=== PATIENT | male | born 1985 ===

== ENCOUNTER → 2021-04-18 | Outpatient (CLI) | payer MEDICARE, MEDICAID ==
[~2021-04-18] MED LIST: CATHETER FLUSH 10 ML SYR IV PRN; HOLD METFORMIN - RECEIVED CONTRAST 20 ML VIAL IV SCH; IOHEXOL 350 MG/ML 100 ML (OMNIPAQUE 350) VIAL IV ONE; NS 100 ML (IVPB) BAG IV ONE
--- NOTE | 2021-04-18 12:17 | Diagnostic Imaging Report ---
PROCEDURE: CT head with and without contrast. TECHNIQUE: Multiple contiguous axial images were obtained through the brain before and after the administration of intravenous contrast. Auto Exposure Controls were utilized during the CT exam to meet ALARA standards for radiation dose reduction. INDICATION: Visual changes and fatigue. No prior CT scans are available for comparison. There are postsurgical changes with a left frontal yaakov hole. There appears to have been a right temporal craniotomy. There are bilateral occipital craniotomies. A right posterior parietal ADJUSTER shunt tube has its tip near the midline between the frontal horns of the lateral ventricles. The ventricles appear to be decompressed. No hydrocephalus is identified. There is no midline shift. No acute intra-axial or extra-axial hemorrhage is detected. Postcontrast images are without abnormal enhancing lesion. IMPRESSION: Chronic and postsurgical changes. There is a ADJUSTER shunt tube in place. No hydrocephalus is identified. No acute features identified. Dictated by: Dictated on workstation # [id number]
== END ==
LOC: RAD 11:06
PROVIDERS: ATTEND Nurse Practitioner Family
DX: H53.9 Unspecified visual disturbance (principal); Q05.4 Unspecified spina bifida with hydrocephalus; R53.83 Other fatigue; Z98.890 Other specified postprocedural states; Z98.2 Presence of cerebrospinal fluid drainage device
CPT/HCPCS: 70470